=== PATIENT | male | born 1950 | race Caucasian/White ===

== ENCOUNTER 2019-09-19 13:55 | Inpatient (IN) | payer MEDICARE ==
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
[2019-09-19 15:12] LABS: ABS Eosinophils 0.1 10^3/ul (0-0.6); ABS Monocytes 0.3 10^3/ul (0-0.8); ABS Neutrophils 2.8 10^3/ul (1.5-7.7); Eosinophil % 1.7 %; Hematocrit 38 % (42-52); Lymphocyte % 24.5 %; Mean Corpuscular HGB Conc 35 g/dL (31-36); Mean Corpuscular Hemoglobin 33 pg (27-31); Mean Corpuscular Volume 95 fL (80-94); Mean Platelet Volume 8.6 fL (7.4-10.4); Platelet Count 212 10^3/uL (150-450); Red Blood Count 3.96 10^6 /uL (4.18-5.48); Red Cell Distribution Width 13 % (10-15); White Blood Count 4.3 10^3/uL (3.5-10.8)
[2019-09-19 15:25] LABS: Albumin 4.1 g/dL (3.2-5.2); Albumin/Globulin Ratio 1.7 (1-3); BUN/Creatinine Ratio 16.2 (8-20); Calcium 9.1 mg/dL (8.6-10.3); EGFR African American 74.4 (>60); EGFR Non-African American 61.5 (>60); Globulin 2.4 g/dL (2-4); Potassium 3.6 mmol/L (3.5-5.0); Total Bilirubin 0.4 mg/dL (0.2-1.0); Total Protein 6.5 g/dL (6.4-8.9)
[2019-09-19 15:54] LABS: TSH (Thyroid Stimulating Horm) 34.75 mcIU/mL (0.34-5.60)
[2019-09-19 16:27] LABS: Urine Appearance Clear; Urine Bilirubin Negative (Negative); Urine Blood Negative (Negative); Urine Color Yellow; Urine Glucose Negative (Negative); Urine Ketones Negative (Negative); Urine Nitrite Negative (Negative); Urine Protein Negative (Negative); Urine Specific Gravity 1.009 (1.010-1.030); Urine Urobilinogen Negative (Negative)
[2019-09-19 16:57] LABS: Free T4 0.58 ng/dL (0.61-1.12)
[2019-09-19] MEDS ORDERED: QUEtiapine TAB* 25 MG PO PRN (18:06)
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
[2019-09-19] MEDS: Memantine TAB* 10 MG PO SCH (21:39)
[2019-09-20] MEDS ORDERED: Haloperidol INJ IV/IM* 5 MG/ML AMP IM PRN (03:03)
[2019-09-20] MEDS ORDERED: Haloperidol INJ IV/IM* 5 MG/ML AMP IM ONE (03:59)
[2019-09-20] MEDS: FLUoxetine CAP* 20 MG PO SCH (08:29)
[2019-09-20] MEDS: amLODIPine TAB* 5 MG PO SCH (08:29)
[2019-09-20] MEDS: Memantine TAB* 10 MG PO SCH ×3 (08:29→21:45)
[2019-09-20] MEDS: Lisinopril TAB* 10 MG PO SCH (08:29)
[2019-09-20] MEDS: Levothyroxine TAB* 112 MCG TAB PO SCH (08:29)
[2019-09-20] MEDS: Tamsulosin CAP* 0.4 MG PO SCH (08:29)
--- NOTE | 2019-09-20 09:11 | PN ---
Subjective Date of Service: 09/20/19 Interval History: Pt was wandering the halls last night. Treated with Haldol, after he laid on the floor and refused to get up He shares a room with his , just woke up, has no complaints. Ambulates to bathroom without help Objective Active Medications: Amlodipine Besylate (Norvasc Tab*) 2.5 mg PO DAILY [facility] Last Admin: 09/20/19 08:29 Dose: 2.5 mg Atorvastatin Calcium (Lipitor*) 40 mg PO QPM [facility] Donepezil HCl (Aricept Tab*) 5 mg PO BEDTIME [facility] Fluoxetine HCl (Prozac Cap*) 40 mg PO DAILY [facility] Last Admin: 09/20/19 08:29 Dose: 40 mg Haloperidol Lactate (Haldol Inj Iv/Im*) 2 mg IM Q6H PRN PRN Reason: AGITATION Last Admin: 09/20/19 03:09 Dose: 2 mg Levothyroxine Sodium (Synthroid Tab*) 112 mcg PO 0600 [facility] Last Admin: 09/20/19 08:29 Dose: 112 mcg Lisinopril (Prinivil Tab*) 40 mg PO DAILY [facility] Last Admin: 09/20/19 08:29 Dose: 40 mg Memantine (Namenda Tab*) 10 mg PO BID [facility] Last Admin: 09/20/19 08:29 Dose: 10 mg Quetiapine Fumarate (Seroquel Tab*) 25 mg PO BEDTIME PRN PRN Reason: AGITATION Tamsulosin HCl (Flomax Cap*) 0.4 mg PO DAILY [facility] Last Admin: 09/20/19 08:29 Dose: 0.4 mg Oxygen Devices in Use Now: None Appearance: 69 yo M in NAD, oriented to self, not willing to follow all the commands Eyes: No Scleral Icterus, PERRLA Ears/Nose/Mouth/Throat: NL Teeth, Lips, Gums, Mucous Membranes Moist Neck: NL Appearance and Movements; NL JVP, Trachea Midline Respiratory: Symmetrical Chest Expansion and Respiratory Effort, Clear to Auscultation Cardiovascular: NL Sounds; No Murmurs; No JVD, RRR Abdominal: NL Sounds; No Tenderness; No Distention Extremities: No Edema Skin: No Nodules or Sclerosis Neurological: NL Muscle Strength and Tone, - - difficulty speaking-aphasia noted Result Diagrams: 09/19/19 15:01 09/19/19 15:01 Assess/Plan/Problems-Billing Assessment: 69 yo m with h.o HTN, dementia, hypothyroidism, primary aphasia brought in by his daughter together with his , since they cannot live independently anymore - Patient Problems (1) Primary progressive aphasia Comment: had seen neurology in the recent past (2) Dementia Comment: cont namenda, aricept (3) Hypothyroidism Comment: TSH high due to medical noncompliance Synthroid restarted at admission (4) HTN (hypertension) Comment: controlled (5) DVT prophylaxis Comment: refused heparin, is ambulatory Status and Disposition: Nursing Home care, SW and CM following
[2019-09-20] MEDS: Atorvastatin* 40 MG TAB PO SCH (16:24)
[2019-09-20] MEDS: QUEtiapine TAB* 25 MG PO SCH ×2 (21:19→21:42)
[2019-09-20] MEDS: Donepezil TAB* 5 MG PO SCH ×2 (21:19→21:44)
[2019-09-21] MEDS: Tamsulosin CAP* 0.4 MG PO SCH (09:59)
[2019-09-21] MEDS: amLODIPine TAB* 5 MG PO SCH (09:59)
[2019-09-21] MEDS: FLUoxetine CAP* 20 MG PO SCH (09:59)
[2019-09-21] MEDS: Lisinopril TAB* 10 MG PO SCH (09:59)
[2019-09-21] MEDS: Levothyroxine TAB* 112 MCG TAB PO SCH (09:59)
[2019-09-21] MEDS: Memantine TAB* 10 MG PO SCH ×2 (09:59→19:34)
[2019-09-21] MEDS: Atorvastatin* 40 MG TAB PO SCH (16:47)
[2019-09-21] MEDS: QUEtiapine TAB* 25 MG PO SCH (19:33)
[2019-09-21] MEDS: Donepezil TAB* 5 MG PO SCH (19:34)
[2019-09-22] MEDS: Levothyroxine TAB* 112 MCG TAB PO SCH (04:53)
[2019-09-22 08:59] VITALS: BP 152/98
[2019-09-22] MEDS: Tamsulosin CAP* 0.4 MG PO SCH (09:02)
[2019-09-22] MEDS: Lisinopril TAB* 10 MG PO SCH (09:02)
[2019-09-22] MEDS: FLUoxetine CAP* 20 MG PO SCH (09:02)
[2019-09-22] MEDS: Memantine TAB* 10 MG PO SCH (09:03)
[2019-09-22] MEDS: amLODIPine TAB* 5 MG PO SCH (09:03)
[2019-09-22] MEDS ORDERED: LORazepam TAB(*) 0.5 MG PO ONE (11:00)
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
== END 2019-09-22 13:30 | DRG 884 ==
LOC: ED 13:55 → MED 17:54
PROVIDERS: ADMIT Internal Medicine; ATTEND Internal Medicine
DX: F03.90 Unspecified dementia, unspecified severity, without behavioral disturbance, psychotic disturbance, mood disturbance, and anxiety (principal); G31.01 Pick's disease; F02.80 Dementia in other diseases classified elsewhere, unspecified severity, without behavioral disturbance, psychotic disturbance, mood disturbance, and anxiety; E03.9 Hypothyroidism, unspecified; I10 Essential (primary) hypertension; E78.5 Hyperlipidemia, unspecified; N40.0 Benign prostatic hyperplasia without lower urinary tract symptoms; Z75.1 Person awaiting admission to adequate facility elsewhere; Z79.899 Other long term (current) drug therapy; Z85.46 Personal history of malignant neoplasm of prostate; Z87.891 Personal history of nicotine dependence
CPT/HCPCS: 36415; 80053; 81003; 84439; 84443; 85025; 99283; A9270-GY; J1630

== ENCOUNTER 2019-10-12 20:02 | Emergency (ER) | payer MEDICARE ==
--- OUTSIDE RECORDS SUMMARY | 2019-10-12 20:53 | XMS REPORT | Continuity of Care Document ---
:1950 External Reference #:[id number] Author Name Miguel Quarles M.D. (transmitted by agent of provider Josselyn Saunders ) Address [address], [place] [address] Care Team Providers Name Role Phone Mike Rothman MD - Family Medicine Care Team Information Order Processor [phone] Problems Active Problems Provider Date Alzheimer's disease Ashley Santos M.D. Onset: 02/08/2015 Social History Type Date Description Comments Sex Unknown ETOH Use Rarely consumes alcohol Tobacco Use Start: Unknown End: Patient is a former smoker Unknown Recreational Drug Use Denies Drug Use Smoking Status Reviewed: 10/09/19 Patient is a former smoker Exercise Type/Frequency Exercises rarely Allergies, Adverse Reactions, Alerts Active Allergies Reaction Severity Comments Date Simvastatin 12/04/2012 Medications Active Medications SIG Qnty Indications Ordering Provider Date Tamsulosin HCL 1 po qd 90caps Unknown 0.4mg Capsules Lisinopril 1 po qd 90tabs Unknown 40mg Tablets Amlodipine Besylate 1 by mouth every Unknown 5mg day Tablets Memantine HCL 1 tab 2x a day Aittama Elizabeth 10mg E.,[employer] Tablets Levothyroxine Sodium 1 by mouth every Unknown day 112mcg Tablets Quetiapine Fumarate take 1 tablet by Unknown 50mg mouth at bedtime Tablets Quetiapine Fumarate 1 tab by mouth Unknown 25mg at at bedtime Tablets Lorazepam Unknown 0.5mg Tablets Haloperidol Lactate Unknown 5mg/ml Solution Fluoxetine HCL 1 by mouth every G30.9 Unknown 40mg day Capsules Atorvastatin Calcium 1 by mouth every Unknown 40mg day Tablets Immunizations Description No Information Available Vital Signs Date Vital Result Comment 10/09/2019 10:59am Height 70 inches 5'10" Weight 141.00 lb Heart Rate 68 /min BP Systolic Sitting 100 mmHg BP Diastolic Sitting 70 mmHg Respiratory Rate 20 /min BMI (Body Mass Index) 20.2 kg/m2 12/05/2018 3:42pm Height 70 inches 5'10" Weight 144.00 lb Heart Rate 88 /min BP Systolic Sitting 120 mmHg BP Diastolic Sitting 88 mmHg Respiratory Rate 14 /min BMI (Body Mass Index) 20.7 kg/m2 Results Test Acquired Date Facility Test Result H/L Range Note CBC Auto 09/19/2019 [facility] White Blood 4.3 10^3/uL Normal 3.5-10.[address] [place] [address] [phone] Red Blood Count 3.96 10^6/uL Low 4.18-5.48 Hemoglobin 13.0 g/dL Low 14.0-18.0 Hematocrit 38 % Low 42-52 Mean Corpuscular Volume 95 fL High 80-94 Mean Corpuscular Hemoglobin 33 pg High 27-31 Mean Corpuscular HGB Conc 35 g/dL Normal 31-36 Red Cell Distribution Width 13 % Normal 10-15 Platelet Count 212 10^3/uL Normal 150-450 Mean Platelet Volume 8.6 fL Normal 7.4-10.4 Abs Neutrophils 2.8 10^3/uL Normal 1.5-7.7 Abs Lymphocytes 1.0 10^3/uL Normal 1.0-4.8 Abs Monocytes 0.3 10^3/uL Normal 0-0.8 Abs Eosinophils 0.1 10^3/uL Normal 0-0.6 Abs Basophils 0.0 10^3/uL Normal 0-0.2 Abs Nucleated RBC 0.0 10^3/uL Granulocyte % 65.9 % Lymphocyte % 24.5 % Monocyte % 7.3 % Eosinophil % 1.7 % Basophil % 0.6 % Nucleated Red Blood Cells % 0.0 Comp Metabolic 09/19/2019 [facility] Sodium 140 mmol/L Normal 135-[address] [place] [address] [phone] Potassium 3.6 mmol/L Normal 3.5-5.0 Chloride 103 mmol/L Normal 101-111 Co2 Carbon Dioxide 32 mmol/L Normal 22-32 Anion Gap 5 mmol/L Normal 2-11 Glucose 91 mg/dL Normal 70-100 Blood Urea Nitrogen 19 mg/dL Normal 6-24 Creatinine 1.17 mg/dL Normal 0.67-1.17 BUN/Creatinine Ratio 16.2 Normal 8-20 Calcium 9.1 mg/dL Normal 8.6-10.3 Total Protein 6.5 g/dL Normal 6.4-8.9 Albumin 4.1 g/dL Normal 3.2-5.2 Globulin 2.4 g/dL Normal 2-4 Albumin/Globulin Ratio 1.7 Normal 1-3 Total Bilirubin 0.40 mg/dL Normal 0.2-1.0 Alkaline Phosphatase 69 U/L Normal 34-104 Alt 10 U/L Normal 7-52 Ast 15 U/L Normal 13-39 Egfr Non- 61.5 >60 Egfr 74.4 >60 1 Laboratory test 09/19/2019 [facility] TSH (Thyroid 34.75 High 0.34-5.[address] Stim Horm) mcIU/[place] [address] [phone] Urinalysis 09/19/2019 [facility] Urine Color Yellow Profile [address] [place] [address] [phone] Urine Appearance Clear Urine Specific [place] 1.009 Low 1.010-1.030 Urine pH 6.0 Normal 5-9 Urine Urobilinogen Negative Negative Urine Ketones Negative Negative Urine Protein Negative Negative Urine Leukocytes Negative Negative Urine Blood Negative Negative Urine Nitrite Negative Negative Urine Bilirubin Negative Negative Urine Glucose Negative Negative Laboratory test 09/19/2019 [facility] Free T4 (Free 0.58 Low 0.61-1.[address] Thyroxine) ng/[place] [address] [phone] 1 Because ethnic data is not always readily available, this report includes an eGFR for both -Americans and non- Americans. The National Kidney Disease Education Program (NKDEP) does not endorse the use of the MDRD equation for patients that are not between the ages of 18 and 70, are , have extremes of body size, muscle mass, or nutritional status, or are non- or non-. According to the National Kidney Foundation, irrespective of diagnosis, the stage of the disease is based on the level of kidney function: Stage Description GFR(mL/min/1.73 m(2)) 1 Kidney damage with normal or decreased GFR 90 2 Kidney damage with mild decrease in GFR 60-89 3 Moderate decrease in GFR 30-59 4 Severe decrease in GFR 15-29 5 Kidney failure <15 (or dialysis) Procedures Description No Information Available Medical Devices Description No Information Available Encounters Type Date Location Provider Dx Diagnosis Office Visit 10/09/2019 [facility] Miguel Quarles, F02.80 Dementia in oth 11:30a Clinic M.DCon diseases classd elswhr w/o behavrl disturb Office Visit 09/22/2019 [facility] Emily Stevens, F03.90 Unspecified 10:22a [facility] dementia without behavioral disturbance R47.01 Aphasia Office Visit 09/20/2019 10:22a [facility] Emily Stevens R47.01 Aphasia [facility] Deepali F03.90 Unspecified dementia without behavioral disturbance E03.9 Hypothyroidism, unspecified Office Visit 09/19/2019 [facility] Jami F03.90 Unspecified 10:21a radha Aguirre MD dementia without Hospitalists behavioral disturbance R47.01 Aphasia Assessments Date Code Description Provider 10/09/2019 F02.80 Dementia in other diseases classified Miguel Quarles M.D. elsewhere without beha 09/22/2019 F03.90 Unspecified dementia without behavioral Emily Stevens M.D. disturbance 09/22/2019 R47.01 Aphasia Emily Stevens M.D. 09/20/2019 R47.01 Aphasia Emily Stevens M.D. 09/20/2019 F03.90 Unspecified dementia without behavioral Emily Stevens M.D. disturbance 09/20/2019 E03.9 Hypothyroidism, unspecified Emily Stevens M.D. 09/19/2019 F03.90 Unspecified dementia without behavioral Jami Rosales MD disturbance 09/19/2019 R47.01 Vishnu Rosales MD Plan of Treatment Future Appointment(s):12/14/2019 12:00 pm - Miguel Quarles M.D. at [facility]10/09/2019 - Miguel Quarles M.D.F02.80 Dementia in other diseases classified elsewhere without behaFollow up:Follow up in 2 months , ok to overbook Functional Status Description No Information Available Mental Status Description No Information Available Referrals Description No Information Available
--- NOTE | 2019-10-12 20:56 | ED ---
Complex/Multi-Sys Presentation - HPI Summary HPI Summary: Patient is a 69 y/o M presenting to the ED via EMS for a chief complaint of confusion. Patient is a resident of [facility]. Per staff at [facility], patient was wandering into other peoples rooms and acting aggressively so EMS was called. Patient's nurse, Sandrine, talked to the nurse at [facility] who said he is at baseline, but is slightly more aggressive than normal. They want him to be in a locked dementia unit and have his medications adjusted. On vitals, patient does not have a fever. PMHx is significant for dementia. Medications reviewed. Allergies noted. LIMITED DUE TO LEVEL 5 CAVEAT - DEMENTIA. - History Of Current Complaint Chief Complaint: EDGeneral Time Seen by Provider: 10/12/19 20:44 Hx Obtained From: Patient Hx From Patient Unobtainable Due To: Dementia Onset/Duration: Sudden Onset, Still Present Timing: Constant Associated Signs And Symptoms: Positive: Confusion, Agitation. Negative: Fever - In vitals, 98 F - Allergies/Home Medications Allergies/Adverse Reactions: Allergies Allergy/AdvReac Type Severity Reaction Status Date / Time No Known Allergies Allergy Verified 09/19/19 14:09 Home Medications: Home Medications LORazepam TAB(*) [Ativan 0.5 MG TAB (*)] 0.5 mg PO QPM PRN 10/12/19 [History Confirmed 10/12/19] LORazepam TAB(*) [Ativan 0.5 MG TAB (*)] 1 mg PO ONCE PRN 10/12/19 [History Confirmed 10/12/19] Lisinopril TAB* [Prinivil TAB*] 40 mg PO DAILY 10/12/19 [History Confirmed 10/12] QUEtiapine TAB* [Seroquel 25 MG TAB*] 50 mg PO 0900,1700 10/12/19 [History Confirmed 10/12/19] PMH/Surg Hx/FS Hx/Imm Hx Previously Healthy: No - LIMITED DUE TO LEVEL 5 CAVEAT - DEMENTIA. Endocrine/Hematology History: Reports: Hx Thyroid Disease - hypothyroidism Cardiovascular History: Reports: Hx Hypertension History: Reports: Hx Benign Prostatic Hyperplasia Sensory History: Denies: Hx Contacts or Glasses, Hx Legally Blind, Hx Deafness, Hx Hearing Aid Opthamlomology History: Denies: Hx Contacts or Glasses, Hx Legally Blind EENT History: Denies: Hx Deafness Neurological History: Reports: Hx Dementia - Cancer History Cancer Type, Location and Year: prostate cancer - Surgical History Surgical History: None Surgery Procedure, Year, and Place: None Infectious Disease History: No Infectious Disease History: Denies: Traveled Outside the [place] in Last 30 Days - Family History Known Family History: Positive: Unknown - LEVEL 5 DUE TO DEMENTIA - Social History Lives: Assisted Living Alcohol Use: None Hx Substance Use: No Substance Use Type: Reports: None Hx Tobacco Use: Yes Smoking Status (MU): Former Smoker Review of Systems Negative: Fever - In vitals, 98 F Neurological: Other - Positive confusion and aggressive All Other Systems Reviewed And Are Negative: No - Comments Additional Review of Systems Comments: LIMITED DUE TO LEVEL 5 CAVEAT - DEMENTIA. Physical Exam - Summary Physical Exam Summary: LIMITED DUE TO LEVEL 5 CAVEAT - DEMENTIA. Constitutional: Well-developed, Well-nourished, Alert. (-) Distressed Skin: Warm, Dry HENT: Normocephalic; Atraumatic Eyes: Conjunctiva normal Neck: Musculoskeletal ROM normal neck. (-) JVD, (-) Stridor, (-) Tracheal deviation Cardio: Rhythm regular, rate normal, Heart sounds normal; Intact distal pulses; Radial pulses are 2+ and symmetric. (-) Murmur Pulmonary/Chest wall: Effort normal. (-) Respiratory distress, (-) Wheezes, (-) Rales Abd: Soft, (-) tenderness, (-) Distension, (-) Guarding, (-) Rebound Musculoskeletal: (-) Edema Lymph: (-) Cervical adenopathy Neuro: Alert, Oriented x0, mumbles words that are incomprehensible. Psych: Mood and affect Normal Triage Information Reviewed: Yes Vital Signs On Initial Exam: Initial Vitals Temp Pulse Resp BP Pulse Ox 98 F 87 16 133/95 93 10/12/19 20:03 10/12/19 20:03 10/12/19 20:03 10/12/19 20:03 10/12/19 20:03 Vital Signs Reviewed: Yes Completion Of Physical Exam Limited Due To: Dementia, Level 5 Procedures - Sedation Patient Received Moderate/Deep Sedation with Procedure: No Diagnostics - Vital Signs Vital Signs Temp Pulse Resp BP Pulse Ox 10/12/19 20:03 98 F 87 16 133/95 93 - Laboratory Lab Statement: Any lab studies that have been ordered have been reviewed, and results considered in the medical decision making process. Complex Multi-Symp Course/Dx Course Of Treatment: Patient is here with agitation. Patient has dementia and at his mental baseline per prison staff. Patient became agitated today and was not redirectable so he was sent here. Upon arrival here, patient is sleeping and overall pleasant. Patient has normal vital signs. Given his normal vital signs and back to his mental baseline, no emergency condition needs to be evaluated and patient was discharged back to the prison - Diagnoses Provider Diagnoses: Dementia Discharge ED - Sign-Out/Discharge Documenting (check all that apply): Patient Departure - Discharge - Discharge Plan Condition: Stable Disposition: HOME Patient Education Materials: Dementia (ED) Referrals: Mike Rothman MD [Medical Doctor] - Additional Instructions: PLEASE RETURN TO EMERGENCY DEPARTMENT FOR ANY NEW OR WORSENING SYMPTOMS. Please follow up with your primary care physician. Please make all follow-ups in 1-3 days unless I advise you otherwise. Based off of your exam and the story provided, you do not have a medical emergency. We cannot adjust your dementia medications. - Billing Disposition and Condition Condition: STABLE Disposition: Home - Attestation Statements Document Initiated by Raquelibcornelia: Yes Documenting Scribe: Sheri Pelayo Provider For Whom Nakia is Documenting (Include Credential): Nitin Smallwood MD Scribe Attestation: Sheri Joyner, scribed for Nitin Smallwood MD on 10/12/19 at 2116. Scribe Documentation Reviewed: Yes Provider Attestation: The documentation as recorded by the Sheri anne accurately reflects the service I personally performed and the decisions made by , Nitin Smallwood MD Status of Scribe Document: Viewed
[2019-10-12 22:34] VITALS: BP 145/90
== END 2019-10-12 22:33 | disposition home or self-care (01) ==
LOC: ED 20:02
DX: F03.90 Unspecified dementia, unspecified severity, without behavioral disturbance, psychotic disturbance, mood disturbance, and anxiety (principal); E03.9 Hypothyroidism, unspecified; I10 Essential (primary) hypertension; N40.0 Benign prostatic hyperplasia without lower urinary tract symptoms; Z87.891 Personal history of nicotine dependence; Z85.46 Personal history of malignant neoplasm of prostate; Z79.899 Other long term (current) drug therapy
CPT/HCPCS: 99282

== ENCOUNTER 2019-11-08 09:26 | Emergency (ER) | payer MEDICARE ==
--- NOTE | 2019-11-08 09:35 | ED ---
Head Injury - HPI Summary HPI Summary: Patient is a 69 y/o M presenting to the ED via EMS for a chief complaint of head injury after a fall that occurred on 11/08/19. Per EMS, patient had decreased responsiveness that is worse than the patient's baseline after the injury. He has a laceration to the left frontal and temporal region of the head. The bleeding controlled by applying Steristrips and dressings to the area. Patient denies myalgia, chest pain, or abdominal pain. PMHx is significant for dementia, aphasia, hypothyroidism, HTN, and HLD. Patient is not on blood thinners per EMS. Medications reviewed. Allergies noted. HISTORY OF PRESENT ILLNESS IS LIMITED DUE TO LEVEL 5 CAVEAT - DEMENTIA. - History Of Current Complaint Stated Complaint: FALL-HEAD INJURY PER EMS Hx Obtained From: Patient, EMS Hx From Patient Unobtainable Due To: Dementia Mechanism Of Injury: Fall From A Standing Position Onset/Duration: Traumatic - Fall, Still Present Severity Currently: Moderate Severity Initially: Moderate Pain Intensity: 0 Pain Scale Used: 0-10 Numeric Location of Head Injury: Frontal, Temporal - Allergies/Home Medications Allergies/Adverse Reactions: Allergies Allergy/AdvReac Type Severity Reaction Status Date / Time No Known Allergies Allergy Verified 09/19/19 14:09 Home Medications: Home Medications Tamsulosin CAP* [Flomax CAP*] 0.4 mg PO DAILY 08/02/15 [History Confirmed ] Atorvastatin* [Lipitor 20 MG*] 40 mg PO QPM 09/19/19 [History Confirmed 10/12/19 ] Levothyroxine Sodium 112 mcg PO DAILY 09/19/19 [History Confirmed 10/12/19] amLODIPine TAB* [Norvasc 5 mg TAB*] 5 mg PO DAILY 09/19/19 [History Confirmed ] FLUoxetine CAP* [PROzac CAP*] 40 mg PO DAILY 09/24/19 [History Confirmed ] Memantine TAB* [Namenda TAB*] 10 mg PO BEDTIME 09/24/19 [History Confirmed 10/12] LORazepam TAB(*) [Ativan 0.5 MG TAB (*)] 0.5 mg PO QPM PRN 10/12/19 [History Confirmed 10/12/19] LORazepam TAB(*) [Ativan 0.5 MG TAB (*)] 1 mg PO ONCE PRN 10/12/19 [History Confirmed 10/12/19] Lisinopril TAB* [Prinivil TAB*] 40 mg PO DAILY 10/12/19 [History Confirmed 10/12] QUEtiapine TAB* [Seroquel 25 MG TAB*] 50 mg PO 0900,1700 10/12/19 [History Confirmed 10/12/19] PMH/Surg Hx/FS Hx/Imm Hx Previously Healthy: No - LIMITED DUE TO LEVEL 5 CAVEAT - DEMENTIA. Endocrine/Hematology History: Reports: Hx Thyroid Disease - hypothyroidism Cardiovascular History: Reports: Hx Hypercholesterolemia, Hx Hypertension History: Reports: Hx Benign Prostatic Hyperplasia Sensory History: Denies: Hx Contacts or Glasses, Hx Legally Blind, Hx Deafness, Hx Hearing Aid Opthamlomology History: Denies: Hx Contacts or Glasses, Hx Legally Blind EENT History: Denies: Hx Deafness Neurological History: Reports: Hx Dementia - Cancer History Cancer Type, Location and Year: prostate cancer - Surgical History Surgical History: None Surgery Procedure, Year, and Place: None Infectious Disease History: No Infectious Disease History: Denies: Traveled Outside the [place] in Last 30 Days - Family History Known Family History: Positive: Unknown - LEVEL 5 DUE TO DEMENTIA - Social History Occupation: Retired Alcohol Use: None Hx Substance Use: No Substance Use Type: Reports: None Hx Tobacco Use: Yes Smoking Status (MU): Former Smoker Review of Systems Negative: Chest Pain Negative: Abdominal Pain Negative: Myalgia Positive: Other - Positive laceration to the left frontal/temporal region of the head Neurological/Mental Status: Other - Positive decreased responsiveness All Other Systems Reviewed And Are Negative: No - Comments Additional Review of Systems Comments: REVIEW OF SYSTEMS IS LIMITED DUE TO LEVEL 5 CAVEAT - DEMENTIA. Physical Exam - Summary Physical Exam Summary: PHYSICAL EXAM IS LIMITED DUE TO LEVEL 5 CAVEAT - DEMENTIA. Constitutional: Well-developed, Well-nourished, Alert. (-) Distressed Skin: Warm, Dry HENT: Normocephalic. Left temporal scalp has a horseshoe shaped injury with no gaping laceration, no active bleeding. Eyes: Conjunctiva normal Neck: Musculoskeletal ROM normal neck. (-) JVD, (-) Stridor, (-) Tracheal deviation Cardio: Rhythm regular, rate normal, Heart sounds normal; Intact distal pulses; Radial pulses are 2+ and symmetric. (-) Murmur Pulmonary/Chest wall: Effort normal. (-) Respiratory distress, (-) Wheezes, (-) Rales Abd: Soft, (-) tenderness, (-) Distension, (-) Guarding, (-) Rebound Musculoskeletal: (-) Edema Lymph: (-) Cervical adenopathy Neuro: Alert, Oriented x3 Psych: Mood and affect Normal Triage Information Reviewed: Yes Vital Signs Reviewed: Yes Completion Of Physical Exam Limited Due To: Dementia, Level 5 - Ronak Coma Scale Best Eye Response: 3 - To Speech Best Motor Response: 6 - Obeys Commands Best Verbal Response: 4 - Confused Coma Scale Total: 13 Procedures - Sedation Patient Received Moderate/Deep Sedation with Procedure: No - Laceration/Wound Repair 1 Location: head - Left temporal Length, Depth and Shape: Horseshoe-shaped Laceration/Wound Explored: clean Closure: SteriStrips - With Dermabond Diagnostics - Laboratory Lab Statement: Any lab studies that have been ordered have been reviewed, and results considered in the medical decision making process. - CT Brain CT CT Interpretation Completed By: Radiologist Summary of CT Findings: Brain CT IMPRESSION: NO ACUTE INTRACRANIAL PATHOLOGY. Reviewed by Dr. Smallwood. Cervical Spine CT CT Interpretation Completed By: Radiologist Summary of CT Findings: Cervical Spine CT IMPRESSION: DEGENERATIVE DISC DISEASE AND OSTEOARTHRITIS. OSTEOPENIA. NO ACUTE OSSEOUS INJURY TO THE CERVICAL SPINE. Reviewed by Dr. Smallwood. Head Injury Course/Dx Course Of Treatment: Patient is here after a mechanical fall. Patient has a history of dementia and cannot provide a history. Patient had a CT scan of his brain and cervical spine for negative for any acute injury. Patient had no other areas of tenderness or signs of trauma. Patient did have a small head wound which was repaired with Steri-Strips and Dermabond. - Diagnoses Provider Diagnoses: Fall, Dementia, Scalp laceration Discharge ED - Sign-Out/Discharge Documenting (check all that apply): Patient Departure - Discharge - Discharge Plan Condition: Stable Disposition: HOME Patient Education Materials: Fall Prevention for Older Adults (ED) Referrals: Jamil King MD [Primary Care Provider] - Additional Instructions: PLEASE RETURN TO EMERGENCY DEPARTMENT FOR CHANGES IN YOUR MENTAL STATUS, REPEATED VOMITING, OR ANY NEW OR WORSENING SYMPTOMS. Please follow up with your primary care physician. Please make all follow-ups in 1-3 days unless I advise you otherwise. Your SteriStrips will fall off naturally. Do not apply Neosporin or antibiotic ointment on the SteriStrips. - Billing Disposition and Condition Condition: STABLE Disposition: Home - Attestation Statements Document Initiated by Nakia: Yes Documenting Scribe: Sheri Pelayo Provider For Whom Nakia is Documenting (Include Credential): Nitin Smallwood MD Scribe Attestation: I, Sheri Pelayo, scribed for Nitin Smallwood MD on 11/08/19 at 1117. Scribe Documentation Reviewed: Yes Provider Attestation: The documentation as recorded by the Sheri anne accurately reflects the service I personally performed and the decisions made by me, Nitin Smallwood MD Status of Scribe Document: Viewed
[2019-11-08 11:26] VITALS: BP 131/82
== END 2019-11-08 11:24 | disposition home or self-care (01) ==
LOC: ED 09:26
DX: S01.01XA Laceration without foreign body of scalp, initial encounter (principal); W19.XXXA Unspecified fall, initial encounter; Y92.9 Unspecified place or not applicable; F03.90 Unspecified dementia, unspecified severity, without behavioral disturbance, psychotic disturbance, mood disturbance, and anxiety; E78.00 Pure hypercholesterolemia, unspecified; I10 Essential (primary) hypertension; N40.0 Benign prostatic hyperplasia without lower urinary tract symptoms; Z85.46 Personal history of malignant neoplasm of prostate; Z87.891 Personal history of nicotine dependence
CPT/HCPCS: 70450; 72125; 99282

== ENCOUNTER 2019-12-19 13:54 | Inpatient (IN) | payer MEDICARE ==
--- NOTE | 2019-12-19 14:25 | ED ---
Altered Mental Status - HPI Summary HPI Summary: 69-year-old male who is a DNR/DNR/do not use antibiotics/no tube feeding/ comfort measures only/do not send to the hospital/trial period of IV fluids presents to the emergency department today with altered mental status and unresponsive. Patient is cachectic and is only responsive to pain. Patient was sent to the emergency department from [facility]. Patient is reported to have sustained a fall 4 days ago. half-way staff state patient has mentally declined over these last days and is now snoring. Patient's pulse oximetry is 81% on 15 L via nonrebreather. Patient's family was notified and it is their wish to keep him on comfort care only ultimately discharging him on hospice. - History Of Current Complaint Chief Complaint: EDAltMentalStatus Stated Complaint: AMS PER EMS Time Seen by Provider: 12/19/19 13:59 Hx Obtained From: Family/Information Technology Assistant Onset/Duration: Unknown, Still Present Timing: Constant Character: Lethargy - Allergies/Home Medications Allergies/Adverse Reactions: Allergies Allergy/AdvReac Type Severity Reaction Status Date / Time No Known Allergies Allergy Verified 09/19/19 14:09 Home Medications: Home Medications Tamsulosin CAP* [Flomax CAP*] 0.4 mg PO DAILY 08/02/15 [History Confirmed ] Atorvastatin* [Lipitor 20 MG*] 40 mg PO QPM 09/19/19 [History Confirmed 10/12/19 ] Levothyroxine Sodium 112 mcg PO DAILY 09/19/19 [History Confirmed 10/12/19] amLODIPine TAB* [Norvasc 5 mg TAB*] 5 mg PO DAILY 09/19/19 [History Confirmed ] FLUoxetine CAP* [PROzac CAP*] 40 mg PO DAILY 09/24/19 [History Confirmed ] Memantine TAB* [Namenda TAB*] 10 mg PO BEDTIME 09/24/19 [History Confirmed 10/12] LORazepam TAB(*) [Ativan 0.5 MG TAB (*)] 0.5 mg PO QPM PRN 10/12/19 [History Confirmed 10/12/19] LORazepam TAB(*) [Ativan 0.5 MG TAB (*)] 1 mg PO ONCE PRN 10/12/19 [History Confirmed 10/12/19] Lisinopril TAB* [Prinivil TAB*] 40 mg PO DAILY 10/12/19 [History Confirmed 10/12] QUEtiapine TAB* [Seroquel 25 MG TAB*] 50 mg PO 0900,1700 10/12/19 [History Confirmed 10/12/19] PMH/Surg Hx/FS Hx/Imm Hx Endocrine/Hematology History: Reports: Hx Thyroid Disease - hypothyroidism Cardiovascular History: Reports: Hx Hypercholesterolemia, Hx Hypertension History: Reports: Hx Benign Prostatic Hyperplasia Sensory History: Denies: Hx Contacts or Glasses, Hx Legally Blind, Hx Deafness, Hx Hearing Aid Opthamlomology History: Denies: Hx Contacts or Glasses, Hx Legally Blind Neurological History: Reports: Hx Dementia - Cancer History Cancer Type, Location and Year: prostate cancer - Surgical History Surgery Procedure, Year, and Place: None Infectious Disease History: Unable to Obtain/Confirm Infectious Disease History: Denies: Traveled Outside the [place] in Last 30 Days - Family History Known Family History: Positive: Unknown - LEVEL 5 DUE TO DEMENTIA - Social History Alcohol Use: None Hx Substance Use: No Substance Use Type: Reports: None Hx Tobacco Use: Yes Smoking Status (MU): Former Smoker Review of Systems Negative: Fever Positive: Shortness Of Breath Negative: Rash All Other Systems Reviewed And Are Negative: Yes - Comments Additional Review of Systems Comments: Review of systems is unable to be obtained due to patient being unresponsive Physical Exam - Summary Physical Exam Summary: Patient is cachectic with evidence of accessory muscle use with breathing. Patient is only responsive to pain. Patient's pulse oximetry is 81% on 15 L via nonrebreather mask. Triage Information Reviewed: Yes Vital Signs On Initial Exam: Initial Vitals Temp Pulse Resp BP Pulse Ox 97.4 F 85 12 134/92 82 12/19/19 13:57 12/19/19 13:57 12/19/19 13:57 12/19/19 13:57 12/19/19 13:57 Vital Signs Reviewed: Yes Appearance: Positive: Ill-Appearing, Thin, Cachectic Skin: Positive: Skin Color Reflects Adequate Perfusion Eyes: Positive: JUANY Respiratory/Lung Sounds: Positive: Breath Sounds Present, Decreased Breath Sounds Cardiovascular: Positive: RRR, S1, S2 Abdomen Description: Positive: Soft Bowel Sounds: Positive: Present Neurological: Negative: Sensory/Motor Intact, Alert, Oriented to Person Place, Time, Normal Gait AVPU Assessment: Pain (Reponds To) Procedures - Sedation Patient Received Moderate/Deep Sedation with Procedure: No Diagnostics - Vital Signs Vital Signs Temp Pulse Resp BP Pulse Ox 12/19/19 13:57 97.4 F 85 12 134/92 82 - Laboratory Lab Statement: Any lab studies that have been ordered have been reviewed, and results considered in the medical decision making process. Altered Mental Statu Course/Dx - Course Course Of Treatment: Patient was evaluated in the emergency department today for unresponsiveness. Patient is only reactive to pain. Patient MOLSTstates comfort measures only. Patient's family was contacted whos wishes remain to have him on comfort measures only. The condition of the patient was discussed with family who wished him to continue receiving comfort measures with admission to the hospital for ultimately being discharged home on hospice. Hospitalist, Dr. Mendiola was consulted who agreed to admit the patient for comfort care with referral to hospice. Patient admitted [facility]. - Diagnoses Differential Diagnosis/HQI/PQRI: Hypoglycemia, Other - Failure to thrive Provider Diagnoses: Failure to thrive - Provider Notifications Discussed Care Of Patient With: Zaria Mendiola - agreed to admit the patient for comfort care with a diagnosis of failure to thrive. Instructed by Provider To: Admit As Inpatient Discharge ED - Sign-Out/Discharge Documenting (check all that apply): Patient Departure - Discharge Plan Condition: Fair Disposition: ADMITTED TO [facility] - Billing Disposition and Condition Condition: FAIR Disposition: Admitted to [facility]
[2019-12-19] MEDS ORDERED: Morphine ORAL CONCENTRATE* 5 MG/0.25 ML ORAL.SYRIN SL PRN (15:06)
[2019-12-19] MEDS ORDERED: LORazepam TAB(*) 0.5 MG PO PRN ×2 (15:07→16:04)
--- NOTE | 2019-12-19 17:04 | HP ---
AMENDED REPORT NOW INCLUDES DESIGNATED COSIGNER HISTORY AND PHYSICAL: DATE OF ADMISSION: 12/19/19 PROVIDER: Edgardo Villalobos NP ATTENDING PHYSICIAN: Dr. Mendiola * (report dictated by Edgardo Villalobos NP). PRIMARY CARE PROVIDER: Dr. Jamil King. CHIEF COMPLAINT: Unresponsive, Change in Status HISTORY OF PRESENT ILLNESS: Mr. Villa is a 69-year-old [facility] long-term resident with a past medical history of dementia with agitation, PTSD, hypothyroidism, hypertension, BPH, history of prostate cancer, who presents today from [facility] for declining status and the family is wishing comfort care measures. The patient is a DNR/DNI/do not use antibiotics/no feeding tube/ comfort care measures only/do not send to the hospital, whose family wanted him admitted for comfort care measures with the goal to take him home with hospice after [facility] called them about his declining status. His daughter, Shanika , who is the main healthcare proxy was called at home and she reports her father has been having an increase in falls the last several weeks. Approximately 4 days ago, he fell and hit his head, and per retirement report to the daughter, he has been in bed, lethargic and unresponsive, as well as not eating for the last 4 to 5 days. She reports prior to that, he has been declining overall. He is cachetic. She denies any recent flu-like symptoms, upper respiratory illness, fever, cough. On admission to the emergency department, the patient's pulse oximetry was 81% on 15 L nonrebreather. The patient is found to be tachypneic, cachectic and minimally responsive only to pain. PAST MEDICAL HISTORY: Hypothyroidism, hypertension, BPH, dementia with agitation, PTSD, history of prostate cancer. HOME MEDICATIONS: Still waiting for med rec to be completed. ALLERGIES: No known allergies. FAMILY HISTORY: Unobtainable. SOCIAL HISTORY: The patient is a former smoker. He currently resides at [facility] as a long-term resident as well as his resides there. His daughter, Shanika, is the healthcare proxy. There is a critical care educator named Sheba, who helps Shanika with her father's care. REVIEW OF SYSTEMS: Unable to be obtained due to the patient is unresponsive. PHYSICAL EXAMINATION GENERAL: Thin elderly cachectic male, lying on emergency department stretcher, unresponsive to verbal commands, but does respond to painful stimuli. VITAL SIGNS: Temperature 97.4, heart rate 89, respirations 12, O2 sat 82% on 15 L nonrebreather, blood pressure 134/92. HEENT: Head is normocephalic, noted healing left scalp laceration as well as right frontal lobe healing laceration. Pupils are equal and reactive to light. NECK: No JVD. LUNGS: Mild tachypnea. Lungs are clear throughout. No wheezing, rales, or rhonchi noted. CARDIAC: S1, S2. Regular rate and rhythm. No murmur noted. ABDOMEN: Flat, soft, nontender, nondistended. EXTREMITIES: No noted lower extremity edema. NEURO: Responsive to pain only. Does not follow commands. IMPRESSION AND PLAN: Mr. Villa is a 69-year-old male with a past medical history of posttraumatic stress disorder, dementia with agitation, hypothyroidism, hypertension, benign prostatic hypertrophy, history of prostate cancer, who currently resides at [facility] as a long-term care resident, who is being admitted for end of life care. 1. End of life care. The patient is comfort care measures only. Oral morphine sublingual 5 mg q.2 hours p.r.n. pain or shortness of breath. Ativan 0.5 mg q.6 hours p.r.n. agitation. Palliative care consult placed for Saturday if the patient survives. Healthcare proxy is his daughter, Shanika Villa she was spoken to over the phone and these are her wishes and stated in the MOLST form. At this time, the plan is to hold all the patient's medications as he is unable to take them. 2. DVT prophylaxis. None due to comfort care measures. 3. DNR/DNI - comfort care TIME SPENT: Approximately 45 minutes was spent on this admission. This case was discussed with attending physician, Dr. Mendiola, who agrees with the plan of care. EDGARDO VILLALOBOS, JOSS [id number]/[facility] #: [id number] EJ
[2019-12-19] MEDS: Morphine INJ* 2 MG/ML 1 ML SYRINGE (TWO MG - NEW SYRINGE VERSION) IV PRN ×2 (19:16→23:31)
[2019-12-19] MEDS ORDERED: Lorazepam PYXIS KEY PRN (20:08)
[2019-12-19] MEDS: LORazepam INJ* 2 MG/ML 1 ML VIAL IV PUSH PRN (20:56)
[2019-12-20] MEDS: LORazepam INJ* 2 MG/ML 1 ML VIAL IV PUSH PRN ×2 (05:11→18:26)
--- NOTE | 2019-12-20 09:36 | PN ---
Subjective Date of Service: 12/20/19 Interval History: Patient is unresponsive to verbal or painful stimuli. Appears to be actively dying. Appears comfortable w/o distress Objective Active Medications: Lorazepam (Ativan Inj*) 1 mg IV PUSH Q6H PRN PRN Reason: ANXIETY Last Admin: 12/20/19 05:11 Dose: 1 mg Miscellaneous (Ativan Pyxis Rivas) 1 ea N/A .ATIVAN IV RIVAS PRN PRN Reason: PYXIS RIVAS Morphine Sulfate (Morphine Inj (Syringe))*) 2 mg IV Q2H PRN PRN Reason: any pain or air hunger Last Admin: 12/19/19 23:31 Dose: 2 mg Vital Signs - 8 hr 12/20/19 12/20/19 05:11 06:11 Respiratory 20 20 Rate Oxygen Devices in Use Now: Non-Rebreather Appearance: elderly cachectic unresponsive male, appears to be actively dying Eyes: PERRLA Ears/Nose/Mouth/Throat: - - dry MM Respiratory: Clear to Auscultation, - - tachypneic with RR 22 Cardiovascular: NL Sounds; No Murmurs; No JVD, No Edema Neurological: - - uunresponsive Lines/Tubes/Other Access: Clean, Dry and Intact Peripheral IV Assess/Plan/Problems-Billing Assessment: Mr. Villa is a 69 yo male with a PMH of hx of prostate cancer, BPH , hypothyroidism, HTN, PTSD, Dementia with agitation, failure to thrive, cachectic who is a long-term resident from [facility] who presented to the ER on 12/19/19 for declining status and end of life care. He was a DNR/DNI, Do Not Send to the Hospital - but family decided they wanted him sent to [facility] for comfort care with plan to take patient home on Hospice if he survives - Patient Problems (1) End of life care Current Visit: Yes Comment: - Actively dying - morphine prn for pain, air hunger - Ativan prn for agitation - Supportive Treatment - discussed with RN to remove oxygen - daughter to come say goodbye today Status and Disposition: OBV meets for inpatient. End of life care. Palliative/Hospice consult pending. If patient survives daughter would like to take him home on Hospice. Patients Daughter Padmini is the point of contact/HCP.
[2019-12-20] MEDS: Morphine INJ* 2 MG/ML 1 ML SYRINGE (TWO MG - NEW SYRINGE VERSION) IV PRN ×5 (11:14→22:32)
[2019-12-20 12:19] VITALS: BP 138/70
[2019-12-20] MEDS ORDERED: Atropine 1% (ORAL/SL)* 15 ML BTL SL PRN (22:15)
--- NOTE | 2019-12-21 01:01 | PN ---
Hospitalist Progress Note Date of Service: 12/21/19 Hospitalist Overnight Note Notified of patient Called to see patient for unresponsiveness. On exam the patient did not respond to verbal or physical stimuli. Absent heart and breath sounds Absent peripheral pulses. Pupils are fixed and dilated. Patient pronounced at 12: 30 AM Next of kin/family notified and at bedisde. Autopsy declined. Not a candidate for organ transplantation. certificate completed in EDRS
--- NOTE | 2019-12-21 02:06 | DS ---
CC: Dr. Jamil King DISCHARGE SUMMARY: DATE OF ADMISSION: 12/19/19 DATE OF DISCHARGE: 12/21/19 PRIMARY CARE PROVIDER: Dr. Jamil King. CONDITION AT THE TIME OF DISCHARGE: . [place] [facility] [place]. PRIMARY DIAGNOSIS: Multiorgan failure secondary to failure to thrive. SECONDARY DIAGNOSES: 1. Advanced dementia. 2. Posttraumatic stress disorder. 3. Benign prostatic hypertrophy. 4. Prostate cancer. MEDICATIONS: None. HISTORY OF PRESENT ILLNESS AND HOSPITAL COURSE: A 69-year-old male with advanced dementia with failu re to thrive for several months prior to admission who presented to the hospital from [facility] with worsening failure to thrive and found to have profound altered mental status. Family el ected for comfort measures only and the patient was admitted for comfort measures during active dying process. He was placed on sublingual morphine, Ativan, and atropine drops for comfort, and his famil y was allowed to remain at bedside on 12/21/19. Provider was called to bedside. The patient was unr esponsive, found to have absent pulse and respiratory rate, pupils fixed and dilated, and pronounced on 12/21/19 at 12:30 a.m. certificate was done in EDRS and the family declined an auto psy knowing that he of natural causes. He was a DNR/DNI. [place] [facility] [place] followup arrangements can be done with the patient's family, who were counseled at [facility] at the time of pronouncement. TIME SPENT: Thirty minutes was spent on planning of this discharge; over half of that spent directly at the bedside of the patient providing direct patient care. n ote and discharge were done in accordance with [facility] policy. [id number]/[facility] #: [id number]
== END 2019-12-21 00:30 | disposition expired | DRG 951 ==
LOC: ED 13:54 → MEDTELE 15:02 → OBSVTOIN 12-20 13:07
PROVIDERS: ADMIT Hospitalist; ATTEND Internal Medicine
DX: Z51.5 Encounter for palliative care (principal); Z68.1 Body mass index [BMI] 19.9 or less, adult; R64 Cachexia; F03.90 Unspecified dementia, unspecified severity, without behavioral disturbance, psychotic disturbance, mood disturbance, and anxiety; R45.1 Restlessness and agitation; F43.10 Post-traumatic stress disorder, unspecified; E03.9 Hypothyroidism, unspecified; R62.7 Adult failure to thrive; I10 Essential (primary) hypertension; Z66 Do not resuscitate; N40.0 Benign prostatic hyperplasia without lower urinary tract symptoms; Z85.46 Personal history of malignant neoplasm of prostate; Z87.891 Personal history of nicotine dependence; Z79.899 Other long term (current) drug therapy
CPT/HCPCS: 99284; G0378; J2060; J2270